=== PATIENT | female | born 1975 | race Caucasian/White ===

== ENCOUNTER → 2018-03-27 09:26 | Outpatient (CLI) | payer OTHER, SELFPAY | PROVIDERS: PCP Family Medicine; Visit Provider Physician Assistant | DX: N30.01 Acute cystitis with hematuria (principal) | CPT/HCPCS: 87077; 87086; 87186 ==

== ENCOUNTER → 2019-04-30 08:17 | Outpatient (CLI) | payer OTHER, SELFPAY ==
[2019-04-30 08:27] LABS: Bacteria Urine None Seen; RBC Urine None Seen (0-5/HPF)
[2019-04-30 09:44] LABS: Hematocrit 42.2 % (36-46); Hemoglobin 14.6 g/dL (12.0-16.0); Mean Corpuscular HGB Conc 34.6 % (30-36); Mean Corpuscular Volume 92.5 fL (80-100); Platelet Count 226 X10^3/uL (150-400); Red Blood Cell Count 4.56 X10^6/uL (4.0-5.2); Red Cell Distribution Width 12.6 % (11.6-14.8); White Blood Cell Count 6.5 X10^3/uL (4.5-11.0)
[2019-04-30 09:54] LABS: Alanine Aminotransferase 12 IU/L (9-52); Albumin 4.1 g/dL (3.5-5.0); Albumin Globulin Ratio 1.3 (1.0-2.8); Alkaline Phosphatase 58 U/L (38-126); Aspartate Aminotransferase 23 IU/L (14-36); Bilirubin Total 0.6 mg/dL (0.2-1.3); Blood Urea Nitrogen 16 mg/dL (7-17); Calcium 9.2 mg/dL (8.4-10.2); Carbon Dioxide 24 mmol/L (22-32); Chloride 105 mmol/L (98-107); Cholesterol 202 mg/dL (140-199); Estimated Glomerular Filt Rate > 60.0 mL/min (>60); Globulin 3.1 g/dL (1.7-4.1); Glucose 116 mg/dL (70-100); HDL Cholesterol 43 mg/dL (40-60); HEMOLYSIS < 15 (0-50); LDL Cholesterol Calculated 131 mg/dL (<100); Magnesium 1.9 mg/dL (1.6-2.3); Potassium 4.1 mmol/L (3.4-5.1); Sodium 138 mmol/L (137-145); Total Protein 7.2 g/dL (6.3-8.2); Triglycerides 138 mg/dL (35-150)
[2019-04-30 10:22] LABS: Appearance Urine UA CLEAR; Bilirubin Urine UA NEGATIVE (NEGATIVE); Color Urine UA YELLOW; Glucose Urine UA NEGATIVE (Negative); Ketones Urine UA NEGATIVE (NEGATIVE); Leukocyte Esterase Urine UA 1+ (NEGATIVE); Nitrite Urine UA NEGATIVE (Negative); Occult Blood Urine UA NEGATIVE (Negative); Protein Urine UA NEGATIVE (Negative); Urobilinogen Urine UA 0.2 E.U./dL (0.2)
[2019-04-30 10:49] LABS: Amorphous Sediment Urine 1+; Squamous Epithelial Cell Urine 1-5 /HPF (0-5/HPF); WBC Urine 0-1/HPF (0-5/HPF)
== END ==
PROVIDERS: Visit Provider Nurse Practitioner Family
DX: E78.2 Mixed hyperlipidemia (principal); M62.838 Other muscle spasm; Z00.00 Encounter for general adult medical examination without abnormal findings
CPT/HCPCS: 36415; 80053; 80061; 81001; 83735; 85027

== ENCOUNTER → 2019-05-03 11:51 | Outpatient (CLI) | payer OTHER, SELFPAY ==
--- NOTE | 2019-05-03 11:53 | DI.RAD.S_ITS ---
PROCEDURE: XR HAND LT MIN 3V INDICATIONS: Left hand pain TECHNIQUE: 3 views of the hand(s) acquired. COMPARISON: None. FINDINGS: Bones: No fractures or dislocations. Carpal bones are normally aligned. No suspicious bony lesions. Mild degenerative changes are noted involving the interphalangeal joints of the hand. Soft tissues: No suspicious soft tissue calcifications. IMPRESSION: 1. No acute osseous abnormality of the left hand. 2. Mild degenerative changes of the left hand. Dictated by: Naif Diamond M.D. on 05/03/2019 at 11:21 Approved by: Naif Diamond M.D. on 05/03/2019 at 11:22
== END ==
PROVIDERS: PCP Nurse Practitioner Family; Visit Provider Physician Assistant
DX: M24.842 Other specific joint derangements of left hand, not elsewhere classified (principal); M79.642 Pain in left hand
CPT/HCPCS: 73130

== ENCOUNTER → 2019-05-13 16:02 | Outpatient (CLI) | payer OTHER, SELFPAY ==
--- NOTE | 2019-05-13 16:03 | DI.MG.S_ITS ---
BILATERAL DIGITAL SCREENING MAMMOGRAM 3D/2D WITH CAD: 05/13/2019 CLINICAL: Routine screening. Baseline exam. No prior exams were available for comparison. There are scattered fibroglandular elements in both breasts. Current study was also evaluated with a Computer Aided Detection (CAD) system. No significant masses, calcifications, or other findings are seen in either breast. IMPRESSION: NEGATIVE There is no mammographic evidence of malignancy. A 1 year screening mammogram is recommended. This exam was interpreted at Station ID: [id number]. NOTE: For mammograms, a report in lay terms will be sent to the patient. Approximately 15% of breast malignancies will not be visualized mammographically. In the management of a palpable breast mass, a negative mammogram must not discourage biopsy of a clinically suspicious lesion. Electronically Signed By: Devon bernard/codey:05/13/2019 16:51:46 letter sent: Normal Exam ACR BI-RADS Category 1: Negative 3341F
== END ==
PROVIDERS: PCP Nurse Practitioner Family; Visit Provider Nurse Practitioner Family
DX: Z12.39 Encounter for other screening for malignant neoplasm of breast (principal)
CPT/HCPCS: 77063; 77067

== ENCOUNTER → 2019-10-22 07:48 | Outpatient (CLI) | payer OTHER, SELFPAY ==
[2019-10-22 08:44] LABS: Cholesterol 214 mg/dL (140-199); HDL Cholesterol 41 mg/dL (40-60); LDL Cholesterol Calculated 141 mg/dL (<100); Triglycerides 161 mg/dL (35-150)
== END ==
PROVIDERS: PCP Nurse Practitioner Family; Visit Provider Nurse Practitioner Family
DX: E78.2 Mixed hyperlipidemia (principal)
CPT/HCPCS: 36415; 80061

== ENCOUNTER → 2019-12-02 12:56 | Outpatient (CLI) | payer OTHER, SELFPAY ==
--- NOTE | 2019-12-02 12:57 | DI.US.S_ITS ---
PROCEDURE: US PELVIC COMPLETE INDICATIONS: IRREGULAR BLEEDING TECHNIQUE: Real-time scanning was performed of the pelvic organs, with image documentation. Additional endovaginal scanning was necessary due to incomplete visualization of the adnexal and endometrial structures by transabdominal scanning. COMPARISON: None. FINDINGS: Transabdominal scanning: Limited scanning through the kidneys shows no hydronephrosis. No pathologic free abdominal or pelvic fluid. Endovaginal scanning: Uterus: Uterus is enlarged in size at 8.1 x 6.5 x 5.7 cm. The endometrium measures 10 mm in combined thickness. 2 intramural fibroids, largest measuring up to 2.1 cm. Subserosal fibroid measuring up to 2.9 cm. Ovaries: Ovaries are normal bilaterally. No adnexal masses seen. IMPRESSION: Multiple uterine fibroids, largest measuring up to 2.4 cm. Dictated by: Montez LOPEZ Interpreted: Ivan Torres MD on 12/02/2019 at 16:38 Approved by: Ivan Torres M.D. on 12/02/2019 at 16:57
== END ==
PROVIDERS: PCP Nurse Practitioner Family; Referring Provider Nurse Practitioner Family; Visit Provider Nurse Practitioner Family
DX: N93.9 Abnormal uterine and vaginal bleeding, unspecified (principal); D25.1 Intramural leiomyoma of uterus; D25.2 Subserosal leiomyoma of uterus
CPT/HCPCS: 76830; 76856

== ENCOUNTER → 2020-05-11 14:52 | Outpatient (CLI) | payer OTHER, SELFPAY ==
--- NOTE | 2020-05-11 14:53 | DI.US.S_ITS ---
ULTRASOUND OF LEFT BREAST: 05/11/2020 CLINICAL: Lat breast palpable area of pain. Comparison is made to exams dated: 05/11/2020 mammogram and 05/13/2019 mammogram - [facility]. Ultrasound of the left breast was performed on the area of interest. Baldwin scale images of the real-time examination were reviewed. IMPRESSION: NEGATIVE There is no sonographic evidence of malignancy. There is no mammographic or sonographic abnormality seen in the left breast to correspond with the palpable abnormality and pain, however, clinical followup is recommended. Return to annual mammogram screening schedule is recommended. This exam was interpreted at Station ID: [id number]. Electronically Signed By: Brittney Macias M.D. lk/:05/11/2020 15:56:03 letter sent: Clinical Evaluation Ultrasound BI-RADS: 1 Negative
--- NOTE | 2020-05-11 14:53 | DI.MG.S_ITS ---
BILATERAL DIGITAL DIAGNOSTIC MAMMOGRAM 3D/2D: 05/11/2020 CLINICAL: Let breast and tenderness. Comparison is made [facility]. There are scattered fibroglandular elements in both breasts. No significant masses, calcifications, or other findings are seen in either breast. IMPRESSION: INCOMPLETE: NEEDS ADDITIONAL IMAGING EVALUATION There is no mammographic abnormality seen in the left breast to correspond with the palpable abnormality and pain, however, targeted ultrasound of the left breast is recommended and will be performed immediately following this exam. This exam was interpreted at Station ID: [id number]. NOTE: For mammograms, a report in lay terms will be sent to the patient. Approximately 15% of breast malignancies will not be visualized mammographically. In the management of a palpable breast mass, a negative mammogram must not discourage biopsy of a clinically suspicious lesion. Electronically Signed By: Brittney Macias M.D. lk/:05/11/2020 15:38:39 ACR BI-RADS Category 0: Incomplete [id number]
== END ==
PROVIDERS: PCP Nurse Practitioner Family; Referring Provider Nurse Practitioner Family; Visit Provider Nurse Practitioner Family
DX: R92.2 Inconclusive mammogram (principal); N63.20 Unspecified lump in the left breast, unspecified quadrant; N64.4 Mastodynia
CPT/HCPCS: 76642; 77066; G0279

== ENCOUNTER → 2020-06-20 08:22 | Outpatient (CLI) | payer OTHER, SELFPAY ==
[2020-06-20 08:57] LABS: Hematocrit 40.3 % (36-46); Hemoglobin 14.3 g/dL (12.0-16.0); Mean Corpuscular HGB Conc 35.5 % (30-36); Mean Corpuscular Hemoglobin 32.8 PG (26-34); Mean Corpuscular Volume 92.4 fL (80-100); Platelet Count 223 X10^3/uL (150-400); Red Blood Cell Count 4.36 X10^6/uL (4.0-5.2); Red Cell Distribution Width 12.5 % (11.6-14.8); White Blood Cell Count 6.4 X10^3/uL (4.5-11.0)
[2020-06-20 09:24] LABS: Alanine Aminotransferase 18 IU/L (<35); Albumin 4.2 g/dL (3.5-5.0); Albumin Globulin Ratio 1.3 (1.0-2.8); Alkaline Phosphatase 63 U/L (38-126); Aspartate Aminotransferase 28 IU/L (14-36); BUN Creatinine Ratio 17.5 (6-22); Bilirubin Total 0.5 mg/dL (0.2-1.3); Blood Urea Nitrogen 14 mg/dL (7-17); Calcium 9.1 mg/dL (8.4-10.2); Carbon Dioxide 29 mmol/L (22-32); Chloride 104 mmol/L (98-107); Cholesterol 204 mg/dL (140-199); Estimated Glomerular Filt Rate > 60.0 mL/min (>60); Globulin 3.3 g/dL (1.7-4.1); Glucose 129 mg/dL (70-100); HDL Cholesterol 44 mg/dL (40-60); HEMOLYSIS < 15 (0-50); LDL Cholesterol Calculated 135 mg/dL (<100); Sodium 138 mmol/L (137-145); Total Protein 7.5 g/dL (6.3-8.2); Triglycerides 123 mg/dL (35-150)
== END ==
PROVIDERS: PCP Nurse Practitioner Family; Referring Provider Nurse Practitioner Family; Visit Provider Nurse Practitioner Family
DX: Z00.00 Encounter for general adult medical examination without abnormal findings (principal); E78.2 Mixed hyperlipidemia
CPT/HCPCS: 36415; 80053; 80061; 85027

== ENCOUNTER → 2020-06-22 09:21 | Outpatient (CLI) | payer OTHER, SELFPAY ==
[2020-06-22 12:58] LABS: Hemoglobin A1C% w Est Avg Glu 5.6 % (4.0-6.0)
== END ==
PROVIDERS: PCP Nurse Practitioner Family; Visit Provider Nurse Practitioner Family
DX: R73.09 Other abnormal glucose (principal)
CPT/HCPCS: 83036

== ENCOUNTER → 2021-05-10 16:26 | Outpatient (CLI) | payer OTHER, SELFPAY ==
[2021-05-10 17:08] LABS: COVID19 -Nasal RAPID Negative (Negative)
== END ==
PROVIDERS: PCP Nurse Practitioner Family; Visit Provider Specialist
DX: Z20.822 Contact with and (suspected) exposure to COVID-19 (principal); Z01.812 Encounter for preprocedural laboratory examination
CPT/HCPCS: 87635

== ENCOUNTER 2021-05-11 10:57 | Day surgery (SDC) | payer OTHER, SELFPAY ==
[2021-05-09 10:46] VITALS: BMI 31.9
[2021-05-11] VITALS (7 sets, daily range): BP systolic 109–124; BP diastolic 67–79; PULSE 66–90; RESP 8–16; TEMP 36.1–37.5; O2SAT 96–100; BMI 31.9
--- NOTE | 2021-05-11 | PATH_ITS ---
[facility] Accession Number: [id number] . 01 Material submitted: . endometrium - ENDOMETRIAL CURETTINGS . 02 Diagnosis: Endometrial Curettings: Portions of secretory endometrium; negative for glandular hyperplasia, cytologic atypia, or malignancy. Some endometrial fragments demonstrate prominent vessels, suggestive of polyp, if clinical and imaging studies are concordant. MRV 05/15/2021 1022 Local . 02 Electronically signed: . Estrellita Nation MD, Pathologist NPI- [id number] . 01 Gross description: . ENDOMETRIAL CURETTINGS: Received in formalin are multiple fragment(s) of dobbins, soft tissue measuring 3.0 x 2.3 x 0.5 cm in aggregate submitted entirely in 1 cassette(s) /[place]ENCE 05/12/2021 0725 Local . 02 Pathologist provided ICD-10: N92.1, N84.0 . 02 CPT . 060520 Performed at: 01 [facility] [address], [place], [place] [id number] MD Deandre Lanier MD Phone: [phone] Performed at: 02 [facility] [address] [place], [place] [id number] MD Yaima Diego MD Phone: [phone]
--- NOTE | 2021-05-11 07:04 | P.HP_ITS ---
History of Present Illness History of Present Illness Date Patient Seen: 05/11/21 Time Patient Seen: 12:47 Chief complaint: [facility] [place] Narrative: Patient is a 46-year-old 3 para 2 who presents for a D&C hysteroscopy with NovaSure endometrial ablation due to menometrorrhagia. Patient History Medical History (Updated 04/24/21 @ 09:36 by Jennie Chakraborty MD) Abnormal vaginal bleeding (03/2019) Candidal intertrigo Elevated fasting blood sugar (06/22/20) Skin lesion Tendinitis Uterine fibroid (03/2020) Surgical History (Updated 01/21/18 @ 05:51 by Conversion Provider) History of tonsillectomy Status post delivery Status post myringotomy with insertion of tube Family & Social History Family History (Updated 04/25/17 @ 00:00 by FELICITY Prince) Grandfather Hypertension High cholesterol Mother Age: 76 High cholesterol Alzheimer's disease Mental health problem Grand mal convulsion Grandfather Cancer Hypertension High cholesterol Grandmother Diabetes mellitus Social History: household members spouse,children Tobacco & Substance use: Smoking Status Never smoker alcohol intake current alcohol intake frequency 0-2 drinks per day Substance Use Type does not use Meds Home Medications and Allergies Home Medications Medication Instructions Recorded Confirmed Type multivitamin 1 tab PO DAILY 12/01/19 05/11/21 History ibuprofen 200 mg tablet 800 mg PO DAILY PRN tab 06/22/20 05/11/21 History medroxyprogesterone 10 mg tablet 10 mg PO DAILY #100 tab 05/05/21 05/11/21 Rx (Provera) Allergies Allergy/AdvReac Type Severity Reaction Status Date / Time SULFA Allergy Mild RASH Uncoded 05/11/21 11:26 Exam Narrative Exam Narrative: HEENT: No thyromegaly, no anterior cervical or supraclavicular lymphadenopathy. Lungs:Clear to auscultation bilaterally, no wheezes. Cardiovascular: Regular rate and rhythm, no murmurs, rubs, or gallops. Abdomen: Well-healed Pfannenstiel scars. No hepatosplenomegaly. No masses palpable. External genitalia: Normal Vagina: Normal Cervix: Normal Bimanual exam: [8 Week size anteverted uterus. Mobile.] No adnexal masses or tenderness Extremities: No edema Assessment & Plan Assessment & Plan narrative: Assessment: 46-year-old 3 para 2 with menometrorrhagia Plan: D&C hysteroscopy with NovaSure endometrial ablation The risks, benefits, and alternatives to the procedure were explained to the patient. The risks including bleeding, infection, and uterine perforation. She understands these risks and agrees to proceed. A full par Q was held and consent form was signed. COVID-19 COVID-19 status: Negative Result date/Date tested (Pos, Neg/Pending): 05/10/21 Time Spent With Patient Time with patient: 15-24 minutes
--- NOTE | 2021-05-11 07:06 | PM.PREOP ---
Pre-operative Note COVID-19 COVID-19 status: Negative Result date/Date tested (Pos, Neg/Pending): 05/10/21 Interval Note History & Physical reviewed/Exam performed by Physician: Yes Changes to H&P: No H&P completed within 30 days and has changed as indicated here:: 05/11/21
[2021-05-11] MEDS: LACTATED RINGERS 1,000 ML 100 ML IV (11:36)
--- NOTE | 2021-05-11 13:26 | PM.GYNOP.1 ---
Operative Date/Time/Diagnoses Date of procedure: 05/11/21 Time of procedure: 13:26 Pre-op diagnosis: Menometrorrhagia Post-op diagnosis: same Procedure & Clinicians Procedure: Procedures Operation Date: 05/11/21 12:45 Actual Procedure Side Surgeon p Hysteroscopy D&C w/ Novasure Ablation Jennie Chakraborty MD Indications: Menometrorrhagia Surgeon: Jennie Chakraborty Anesthesia Type: General (LMA) Operative Notes Findings: Eight week size anteverted uterus Both fallopian tube ostia observed Thickened endometrial lining Closure Type: not applicable Specimen(s): endometrial curettings Estimated blood loss (mL): 5 Blood products transfused: none Procedure in detail: After informed consent was obtained, the patient was taken to the operating room where she was placed in the dorsal supine position. After adequate LMA general anesthesia was achieved, she was placed in the dorsal lithotomy position, and prepped and draped in the usual sterile fashion. A time-out was performed. A bivalve speculum was placed into the vagina and the anterior lip of the cervix was grasped with a single-tooth tenaculum. The cervical os was sequentially dilated until the hysteroscope could pass easily into the endometrial cavity. Initial inspection with the hysteroscope revealed both fallopian tube ostia, and a thickened endometrial lining. The hysteroscope was removed. Gentle sharp curettage was performed yielding a large amount of endometrial curettings. The uterus was measured from the internal os to the fundus of the uterus and measured 5 cm. The NovaSure catheter was opened and the with of the uterus was 4.2 cm. This indicated a power of 116 w. the cavity assessment was performed and passed. The cervix was capped. The cycle was initiated and lasted 93 seconds. The NovaSure catheter was closed, the cervix was uncapped, and the catheter was removed without difficulty. Single-tooth tenaculum was removed from the anterior lip of the cervix. The bivalve speculum was removed from the vagina. Sponge, lap, and instrument counts were correct x2. The patient tolerated the procedure well, and was taken to PACU in stable condition. Complications: none Post-operative Condition: stable Disposition: PACU Plan for aftercare: Home after recovery
--- NOTE | 2021-05-11 13:39 | SUR.OPER ---
Lithotomy on padded OR bed, head on pillow, arms secured on padded arm boards at <90 degrees abduction. Legs secured in padded yellow fins stirrups.
--- NOTE | 2021-05-11 13:42 | SUR.PHASEI ---
Received to PACU after general anesthesia. Oral airway in place. No further airway support required. Report from YESI Solis and Dr Kamara.
== END 2021-05-11 15:00 | disposition home or self-care (01) ==
PROVIDERS: PCP Nurse Practitioner Family; Referring Provider Obstetrics & Gynecology; Visit Provider Obstetrics & Gynecology
PROC: 0U5B8ZZ Destruction of Endometrium, Via Natural or Artificial Opening Endoscopic (ICD-10-PCS; CPT 58563; principal; 2021-05-11 12:45)
DX: N92.1 Excessive and frequent menstruation with irregular cycle (principal); N84.0 Polyp of corpus uteri
CPT/HCPCS: 58558; J1885; J2250; J2405; J2704; J3010

== ENCOUNTER → 2021-05-26 10:58 | Outpatient (CLI) | payer OTHER, SELFPAY ==
--- NOTE | 2021-05-26 | DI.MG.S_ITS ---
BILATERAL DIGITAL SCREENING MAMMOGRAM 3D/2D WITH CAD: 05/26/2021 CLINICAL: Routine screening. Family history of breast cancer. Comparison is made to exams dated: 05/11/2020 ultrasound, 05/11/2020 mammogram, and 05/13/2019 mammogram - [facility]. There are scattered fibroglandular elements in both breasts. Current study was also evaluated with a Computer Aided Detection (CAD) system. No significant masses, calcifications, or other findings are seen in either breast. There has been no significant interval change. IMPRESSION: NEGATIVE There is no mammographic evidence of malignancy. A 1 year screening mammogram is recommended. This exam was interpreted at Station ID: [id number]. NOTE: For mammograms, a report in lay terms will be sent to the patient. Approximately 15% of breast malignancies will not be visualized mammographically. In the management of a palpable breast mass, a negative mammogram must not discourage biopsy of a clinically suspicious lesion. Electronically Signed By: Billie santana/codey:05/26/2021 14:17:38 letter sent: Normal Exam ACR BI-RADS Category 1: Negative 3341F
== END ==
PROVIDERS: PCP Nurse Practitioner Family; Referring Provider Nurse Practitioner Family; Visit Provider Nurse Practitioner Family
DX: Z12.31 Encounter for screening mammogram for malignant neoplasm of breast (principal); Z80.3 Family history of malignant neoplasm of breast
CPT/HCPCS: 77063; 77067

== ENCOUNTER → 2021-09-04 14:32 | Outpatient (CLI) | payer OTHER, SELFPAY ==
[2021-09-04 16:30] LABS: COVID19 -Nasal RAPID Negative (Negative)
== END ==
PROVIDERS: PCP Nurse Practitioner Family; Visit Provider Obstetrics & Gynecology
DX: Z01.812 Encounter for preprocedural laboratory examination (principal); Z20.822 Contact with and (suspected) exposure to COVID-19
CPT/HCPCS: 87635

== ENCOUNTER 2021-09-05 08:37 | Observation (INO) | payer OTHER, SELFPAY ==
[2021-09-04 13:49] VITALS: BMI 32.7
[2021-09-05] VITALS (28 sets, daily range): BP systolic 83–115; BP diastolic 41–82; PULSE 55–80; RESP 10–18; TEMP 36.6–38.2; O2SAT 92–99; BMI 32.7
--- NOTE | 2021-09-05 | PATH_ITS ---
[facility] Accession Number: [id number] . 01 Material submitted: . uterus - FIBEROID UTERUS AND BILATERAL TUBES . 01 Clinical history: . PELVIC *OPB* . 02 Diagnosis: A. Uterus and Bilateral Fallopian Tubes, Supracervical Hysterectomy and bilateral salpingectomy: Myometrium with adenomyosis and multiple leiomyomatas (up to 4 cm). Weakly proliferative/early secretory phase endometrium with extensive hyalinization/infarct-type changes and evidence of prior hemorrhage. Bilateral fallopian tubes with congestion, edema and hydrosalpinx. No evidence of dysplasia, endometrioid intraepithelial neoplasia, or malignancy. [facility] 09/11/2021 0452 Local . 02 Electronically signed: . Catherine Gonzales MD, Pathologist NPI- [id number] . 01 Gross description: . The specimen is received in formalin labeled fibroid uterus, bilateral tubes and consists of a 127 gram supracervically resected uterus with one attached fallopian tube and one detached fallopian tube. The specimen measures 11.0 cm from superior fundus to cervix x 6.0 cm from cornu to cornu x 4.5 cm from anterior to posterior. The serosa is dobbins-pink and smooth with focal areas of hemorrhage and disruption along with fibrinous adhesions. The specimen is bivalved to reveal a distorted endometrial cavity measuring 4.5 x 2.0 cm with a dobbins-pink granular endometrium measuring 0.2 cm in thickness. There is a 4.0 x 3.0 x 1.2 cm aggregate of loosely adherent dobbins hemorrhagic soft tissue within the endometrial cavity, which detached during sectioning. The myometrium is dobbins-pink and trabeculated measuring 2.0 cm in thickness. There are multiple dobbins-white whorled leiomyomata ranging from 0.3 to 4.0 cm with no areas of hemorrhage, necrosis or cystic degeneration. The attached fallopian tube measures 7.5 cm in length x 1.0 cm in diameter and the detached fallopian tube measures 6.8 cm in length x 1.0 cm in diameter. The serosa is dobbins-pink to pink-purple and smooth with focal fibrinous adhesions. Sectioning reveals a dobbins-pink to red-brown mucosa and a stellate lumen measuring 0.5 cm in diameter. [employer] Specialist sections are submitted. . A1-A2 - Lower uterine segment. A3-A4 - Loosely adherent endometrial cavity soft tissue, entirely submitted. A5-A9 - Vector Control Specialist uterus and leiomyomata. A10-A11 - Attached fallopian tube, central cross sections and bisected fimbria. A12 - Detached fallopian tube, bisected fimbria, and central cross sections. ([id number]) /[facility] 09/06/2021 1729 Local . 02 Pathologist provided ICD-10: D25.9, N92.0 . 02 CPT . 897108 Performed at: 01 [facility] [address] [address], [place], [place] [id number] MD Deandre Lanier MD Phone: [phone] Performed at: 02 [facility] [address] [place], [place] [id number] MD Yaima Diego MD Phone: [phone]
[2021-09-05] MEDS: LACTATED RINGERS 1,000 ML 100 ML IV ×4 (09:15→16:47)
--- NOTE | 2021-09-05 09:52 | PM.PREOP ---
Pre-operative Note COVID-19 COVID-19 status: Negative Result date/Date tested (Pos, Neg/Pending): 09/04/21 Interval Note History & Physical reviewed/Exam performed by Physician: Yes Changes to H&P: No H&P completed within 30 days and has changed as indicated here:: 09/04/21
[2021-09-05] MEDS: CEFAZOLIN 2 GM/20 ML SYRINGE IV (10:30)
--- NOTE | 2021-09-05 11:01 | SUR.OPER ---
Lithotomy on padded OR bed. Norton Pad Positioner under torso. Head on pillow, arms padded and tucked at sides. Legs secured in padded yellow fins stirrups.
[2021-09-05] MEDS: EPINEPHrine 1 MG/ML 0.15 MG INJ (11:07)
[2021-09-05] MEDS: BUPIVACAINE 0.5% (PF) VIAL 30 ML INJ (11:08)
[2021-09-05] MEDS: ACETAMINOPHEN IV 1,000 MG/100 ML VIAL 400 MG IV (11:08)
[2021-09-05] MEDS: TRIAMCINOLONE 40 MG/ML VIAL 30 MG IM (12:12)
--- NOTE | 2021-09-05 13:06 | PM.GYNOP.1 ---
Operative Date/Time/Diagnoses Date of procedure: 09/05/21 Time of procedure: 13:06 Pre-op diagnosis: Menorrhagia Failed endometrial ablation Post-op diagnosis: same Procedure & Clinicians Procedure: Procedures Operation Date: 09/05/21 09:45 Actual Procedure Side Surgeon p Laparoscopic Supracervical Hysterectomy w/ bilateral salpingectomies-attempted, converted to open Bilateral Jennie Chakraborty MD Indications: Menorrhagia Failed endometrial ablation Surgeon: Jennie Chakraborty Track Moving Machine Operator: Stephanie Chavez Anesthesia Type: General and Local Operative Notes Findings: Omental to anterior abdominal wall adhesion Omental to left cornua of the uterus adhesions Significant bladder to lower uterine segment adhesions Closure Type: primary Specimen(s): left tube, right tube and uterus Applied: catheter (To continuous drainage) Estimated blood loss (mL): 250 Blood products transfused: none Procedure in detail: The patient was taken to the operating room where she was placed in the dorsal supine position. After adequate general endotracheal anesthesia was achieved, she was placed in the dorsal lithotomy position, prepped and draped the usual sterile fashion. A time-out was performed. A bivalve speculum was placed into the vagina and the anterior lip of the cervix was grasped with a single-tooth tenaculum. The cervical os was sequentially dilated until the Zumi uterine manipulator could pass easily into the endometrial cavity. The single-tooth tenaculum was removed from the anterior lip of the cervix. The bivalve speculum was removed from the vagina. Attention was then turned to the abdomen where 6 cc of 0.5% Marcaine with epinephrine were injected in the umbilical fold. A 5 mm incision was made. The Veress needle was placed into the peritoneal cavity, and its placement confirmed by aspiration and drop test. The abdominal cavity was insufflated with 4.2 L of CO2. The Veress needle was removed, and a 5 mm trocar was placed without difficulty. Initial inspection of the abdomen and pelvis revealed significant adhesions between omentum and the anterior abdominal wall. A second 5 mm incision was made 4 cm lateral to the midline on the right side after 6 cc of 0.5% Marcaine with epinephrine were injected. A second 5 mm trocar was placed under direct visualization. Using both the Endo Nessa with cautery and the PlasmaKinetic, the omentum was carefully taken down off of the anterior abdominal wall with cautery and cut. Care was taken make sure that there was no bowel involved with the omentum. Hemostasis was achieved. Once the pelvis could be visualized. There was a piece of omentum stuck to the uterus. A third incision was made lateral to the umbilicus on the left side after 6 cc of 0.5% Marcaine with epinephrine were injected. A third 5 mm trocar was placed under direct visualization, taking care to avoid the omentum. The piece of omentum was placed on traction with an atraumatic grasper. Using the Endo Nessa, the piece of omentum was dissected off of the uterus using cautery and cut. Hemostasis was achieved. The ovaries were found to be normal. The tubes were found to be normal. She had previously had her gallbladder removed. There were significant adhesions between the bladder and uterus along the previous area. The Endo Nessa were used to take down the filmy adhesions. It was very difficult to see the plane between the uterus and bladder. The mesosalpinx on the right side was cauterized and cut all the way down to the cornua of the uterus. This was repeated on the patient's left side. The utero-ovarian ligament and round ligament were cauterized and cut on the right side. The broad ligament was cauterized and cut. A small bladder flap on the right side was created using the PlasmaKinetic. The uterine arteries on the right side were cauterized for hemostasis. Turning to the left side, was very difficult to visualized the bladder plane. A decision was made to proceed with an open procedure. The instruments were removed from the abdomen. The CO2 was allowed to escape. The laparoscopy incisions were closed with 4-0 Monocryl in a subcuticular fashion. A Pfannenstiel incision was made through the previous section incision. This was carried through to the underlying layer of fascia. The fascia was nicked in the midline and the incision extended bilaterally with the Vasquez scissors. Superior aspect of the fascial incision was grasped with the Allen clamps, elevated, and the underlying rectus muscles dissected off sharply and bluntly. Attention was then turned to the inferior aspect of this incision which in a similar fashion was grasped with the Allen is, elevated, and the fascia was taken down off of the muscle using sharp and blunt dissection. The rectus muscles were in the midline. The peritoneum was identified and grasped between 2 hemostats. Care was taken to avoid any bowel between the hemostats. The peritoneum was entered sharply with the Metzenbaum scissors. This incision was extended superiorly and inferiorly with good visualization of the bladder. The O'Omar O'Owen retractor was placed into the incision, the bowel was packed away with moist lap sponges. A bladder blade was inserted. On the left side the utero-ovarian ligament was cauterized and cut with the PlasmaKinetic. The round ligament was cauterized and cut. Hemostasis was achieved. The broad ligament was cauterized and cut. At the level of the uterine arteries the bladder was adhesed to the uterus. This was taken down sharply using the Metzenbaum scissors. Finally a plane was visualized between the bladder and the lower uterine segment. This was grasped with a pickup and the bladder taken down off the lower uterine segment and cervix sharply using the Metzenbaum scissors. A moistened sponge stick was then used to push the bladder down off of the cervix. The uterine arteries on the left side were clamped, transected, and suture ligated with 0 Vicryl. Using a 10. Blade, the uterus was amputated from the cervix approximately 2 cm above the uterosacral ligaments. There was a fibroid visualized in the very lower uterine segment and top of the cervix. This was removed with the specimen. There was also a pedunculated fibroid at the fundus of the uterus that measured about 5 cm. All of this was handed off for specimen. The cervix was closed with a series of simple interrupted sutures using 0 Vicryl. There was some bleeding noted at the left edge. A suture with 0 Vicryl was placed in a [id number] suture for hemostasis. The pelvis and abdomen were copiously irrigated with warm normal saline. There was no bleeding noted. The moist lap sponges were removed from the abdomen. The O'Omar O'Owen retractor system was removed from the abdomen and pelvis. The pelvis was once again visualized and was found to be hemostatic. The omentum that had previously been taken down was visualized and was hemostatic. The peritoneum was closed with 2-0 Vicryl in a running fashion. The fascia was reapproximated using 0 Vicryl in a running fashion. The subcutaneous layer was copiously irrigated with warm normal saline. Five simple interrupted sutures with 3-0 Vicryl were placed to reapproximate the subcutaneous layer. The skin was closed with 4-0 Monocryl in a subcuticular fashion. Steri-Strips and an Aquacel dressing were placed over the lower incision. Steri-Strips and Allevyn dressings were placed over the laparoscopy incisions. The Zumi uterine manipulator was removed from the uterus prior to amputation of the uterus from the cervix abdominally. Sponge, lap, and instrument counts were correct x2. The patient tolerated the procedure well, and was taken to PACU in stable condition. Complications: none Post-operative Condition: stable Disposition: PACU Plan for aftercare: To acute care after recovery
[2021-09-05] MEDS: fentaNYL 100 MCG/2 ML INJ IV (13:45)
--- NOTE | 2021-09-05 14:02 | SUR.PHASEI ---
Dr Morin to bedside to check on patient. Reviewed patient VS including BP 84/50 (MAP 66) abd 83/51 with HR 58-62. Pt with good color. resting comfortably with eyes closed. LR Bag #3 infusing wide open. See new order for Dilaudid IV. Continue to monitor. No other orders at this time.
[2021-09-05] MEDS: LACTATED RINGERS 1,000 ML 999 ML IV (14:05)
--- NOTE | 2021-09-05 14:09 | SUR.PHASEI ---
Dr Chakraborty notified in office via nurse that patient with cloudy, yellow urine, UA taken from ross cath while emptying for the first time post insertion. See new order.
[2021-09-05] MEDS: HYDROMORPHONE 2 MG INJ 0.25 MG IV ×3 (14:29→14:43)
[2021-09-05 14:42] LABS: Appearance Urine UA CLOUDY; Bilirubin Urine UA NEGATIVE (NEGATIVE); Color Urine UA YELLOW; Glucose Urine UA NEGATIVE (Negative); Ketones Urine UA NEGATIVE (NEGATIVE); Leukocyte Esterase Urine UA NEGATIVE (NEGATIVE); Nitrite Urine UA NEGATIVE (Negative); Occult Blood Urine UA 3+ (Negative); Protein Urine UA NEGATIVE (Negative); Urobilinogen Urine UA 0.2 E.U./dL (0.2)
[2021-09-05] MEDS: OXYCODONE IR 5 MG TABLET PO ×3 (14:42→17:24)
[2021-09-05 14:44] LABS: pH Urine UA 5.5 (4.5-8.0)
[2021-09-05 14:51] LABS: Amorphous Sediment Urine 3+; Bacteria Urine None Seen; Culture Indicated Urine Cult Not Indicated; Mucus Urine 1+ (Negative); RBC Urine 1-5/HPF (0-5/HPF); Squamous Epithelial Cell Urine 1-5 /HPF (0-5/HPF); WBC Urine 0-1/HPF (0-5/HPF)
--- NOTE | 2021-09-05 15:55 | SUR.PHASEI ---
Pt transferred to room 211 in stretcher by this RN. SBAR report to Lizabeth Carvalho with eval of dressings and ewa pad at bedside. Pt alert, oriented, pain /10. Transferred to bed, call light in reach, belongings with patient. at bedside.
[2021-09-05] MEDS: KETOROLAC 30 MG/ML VIAL IV ×2 (16:47→23:02)
[2021-09-05] MEDS: OXYCODONE IR 10 MG TABLET PO (18:14)
[2021-09-05] MEDS: ACETAMINOPHEN 325 MG TABLET 650 MG PO (18:14)
--- NOTE | 2021-09-05 19:10 | PC.NURSE ---
A&Ox4. VSS. Pain 7/10 in lower abdomen. Given PRN oxycodone 5mg which didn't not help. Dr. Chakraborty increased dose to 10 mg so patient was given another 5mg dose. LR going at 100 left hand. Ice applied to abdomen. Dressings CDI. Beulah pad with scant blood. Byrd draining yellow urine. Ate a few crackers and drinking broth. at bedside. Call light within reach, bed low.
[2021-09-05] MEDS: MORPHINE 4 MG/ML INJ IV (20:50)
[2021-09-05] MEDS: DOCUSATE 100 MG CAPSULE 200 MG PO (20:50)
--- NOTE | 2021-09-05 21:45 | PC.NURSE ---
Addendum entered by Joy Henderson R.N. 09/06/21 06:51: Catheter d'cd at 0645; tolerated well. Instructed in sx/prevention of UTI. Pain well controlled during the night following the 1x dose of Morphine. Dr Chakraborty in earlier this morning to see patient. Original Note: Patient is alert and oriented. Breath sounds CTA with RA sat of 97%. HRR. Did complain of lightheadedness/dizziness when out of bed. Denied nausea. BT hypoactive and denies passing flatus as yet. Abdomen is soft and tender to touch. Allevyn dressings to lap sites CDI. Aquacel dressing to lower abdomen is CDI. Complained of 7/10 lower abdominal pain unrelieved with oxycodone, tylenol or toradol so Dr. Briseno contacted and order received for IV Morphine and patient medicated as ordered and now pain is coming down and is 5/10. Has warm blanket applied to abdomen for comfort. Peripad changed and had moderate amount of brown/red drainage. Indwelling catheter is patent and urine is clear, yellow. Is able to move self in bed. Gotten out of bed with 2 assists (spouse and RN) and ambulated in room and back to bed. Wearing bilateral calf SCD's. Fall risk score is moderate but spouse in room so alarm is not activated.
[2021-09-06] VITALS: BP 94/49; PULSE 74; RESP 16; TEMP 37.3; O2SAT 95
[2021-09-06] MEDS: ACETAMINOPHEN 325 MG TABLET 650 MG PO ×3 (00:10→11:31)
[2021-09-06] MEDS: OXYCODONE IR 10 MG TABLET PO ×3 (02:49→13:53)
[2021-09-06] MEDS: LACTATED RINGERS 1,000 ML 100 ML IV (02:55)
[2021-09-06 03:14] VITALS: BP 98/55; PULSE 57; RESP 18; TEMP 36.6; O2SAT 98
[2021-09-06] MEDS: KETOROLAC 30 MG/ML VIAL IV ×2 (04:38→10:00)
[2021-09-06 06:58] LABS: Add Manual Diff / Slide Review NO; Basophils Absolute Auto 100 /uL (0-100); Basophils Percent Auto 0.5 % (0-2); Eosinophils Absolute Auto 0 /uL (0-450); Eosinophils Percent Auto 0.1 % (2-4); Hematocrit 29.1 % (36-46); Hemoglobin 9.7 g/dL (12.0-16.0); Lymphocytes Absolute Auto 1000 /uL (1100-4500); Lymphocytes Percent Auto 10.2 % (25-40); Mean Corpuscular HGB Conc 33.3 % (30-36); Mean Corpuscular Hemoglobin 27.3 PG (26-34); Mean Corpuscular Volume 81.8 fL (80-100); Monocytes Absolute Auto 700 /uL (0-900); Monocytes Percent Auto 6.9 % (3-14); Neutrophils Absolute Auto 7800 /uL (1500-7000); Neutrophils Percent Auto 82.3 % (50-75); Platelet Count 222 X10^3/uL (150-400); Red Blood Cell Count 3.56 X10^6/uL (4.0-5.2); Red Cell Distribution Width 15.6 % (11.6-14.8); White Blood Cell Count 9.4 X10^3/uL (4.5-11.0)
--- NOTE | 2021-09-06 07:55 | P.PN_ITS ---
Subjective Subjective Date Patient Seen: 09/06/21 Time Patient Seen: 04:40 Interval history: Patient is a 46-year-old 3 para 2 postop day # 1 status post a l aparoscopy that was converted to abdominal supracervical hysterectomy, bilateral salpingectomy, and extensive lysis of adhesions. She had some pain control issues last evening which were finally resolved with some IV morphine. She is comfortable this morning. No nausea or vomiting. She did tolerate some broth last evening. She ambulated in the room. The Byrd catheter is still in place. Exam Vital Signs (past 8 hours): - 09/06/21 00:00 09/06/21 03:14 Temperature 99.2 F 97.9 F Pulse Rate 74 57 L Respiratory Rate 16 18 Blood Pressure 94/49 L 98/55 L Pulse Oximetry 95 98 Oxygen Delivery Method Room Air Oxygen Flow Rate 0 Narrative Exam Narrative: Generally: The patient is lying in bed, no acute distress Lungs: Clear to auscultation bilaterally Cardiovascular: Regular rate and rhythm Abdomen: Soft and flat. Bowel sounds in all 4 quadrants. Extremities: SCDs in place. Objective Labs Result Diagrams: 09/06/21 05:40 Labs: Laboratory Results - last 24 hr 09/05/21 09/06/21 14:07 05:40 WBC 9.4 RBC 3.56 L Hgb 9.7 L Hct 29.1 L MCV 81.8 MCH 27.3 MCHC 33.3 RDW 15.6 H Plt Count 222 Neut % (Auto) 82.3 H Lymph % (Auto) 10.2 L Riley % (Auto) 6.9 Eos % (Auto) 0.1 L Baso % (Auto) 0.5 Neut # (Auto) 7800 H Lymph # (Auto) 1000 L Riley # (Auto) 700 Eos # (Auto) 0 Baso # (Auto) 100 Urine Color Yellow Urine Appearance Cloudy Urine pH 5.5 Ur Specific Epps 1.020 Urine Protein Negative Urine Glucose (UA) Negative Urine Ketones Negative Urine Occult Blood 3+ H Urine Nitrate Negative Urine Bilirubin Negative Urine Urobilinogen 0.2 Ur Leukocyte Esterase Negative Urine RBC 1-5/hpf Urine WBC 0-1/hpf Ur Squamous Epith Cells 1-5 /hpf Amorphous Sediment 3+ Urine Bacteria None seen Urine Mucus 1+ H Ur Culture Indicated? Cult not indicated [facility] Medical History (Updated 06/11/21 @ 16:51 by Jennie Chakraborty MD) Candidal intertrigo Elevated fasting blood sugar (06/22/20) Skin lesion Tendinitis Surgical History (Updated 09/04/21 @ 13:49 by Nadine Lima RN) History of hysteroscopy (05/11/21) History of tonsillectomy Status post delivery Status post myringotomy with insertion of tube Family History (Updated 04/25/17 @ 00:00 by FELICITY Prince) Grandfather Hypertension High cholesterol Mother Age: 76 High cholesterol Alzheimer's disease Mental health problem Grand mal convulsion Grandfather Cancer Hypertension High cholesterol Grandmother Diabetes mellitus Social History household members: spouse and children Smoking Status: Never smoker second hand exposure: No alcohol intake: current substance use type: does not use Assessment & Plan Post-op Postoperative Procedures: Procedures Operation Date: 09/05/21 09:45 Actual Procedure Side Surgeon p Laparoscopic Supracervical Hysterectomy w/ bilateral salpingectomies- attempted, converted to open Bilateral Jennie Chakraborty MD Postoperative day: 1 Postoperative status: doing well Postoperative status narrative: Assessment: Postop day # 1 status post laparoscopy converted to laparotomy with supracervical hysterectomy, bilateral salpingectomy, and extensive lysis of adhesions Patient doing well Postoperative plan: ambulate, advance diet and voiding trials Postoperative plan narrative: Plan: Remove Byrd catheter this morning Advanced diet Ambulate Will re-evaluate at lunchtime for possible discharge later today
[2021-09-06] MEDS: DOCUSATE 100 MG CAPSULE 200 MG PO (07:57)
[2021-09-06 10:09] VITALS: BP 112/54; PULSE 56; PULSE 62; RESP 19; TEMP 37.1; O2SAT 98
--- NOTE | 2021-09-06 10:57 | CM.DANOTE ---
Addendum entered by CARLOS Fox 09/06/21 14:10: ADD: Per MD, pt was able to void independently and medically stable to d/c home today with no identified barriers to discharge. BF Original Note: Patient is a 46 yo female who was admitted for planned hysterectomy/ablasion. Pt has REG PPO for insurance and her PCP is Laverne Wooten. EMR was reviewed. Per OBGYN, pt tolerated procedure well and had some pain management issues overnight but better controlled now and will d/c her ross, advance pt's diet, towards determining if she is stable to d/c home today vs tomorrow. SW met bedside with pt and spouse and explained role and pt confirms that they live at home in [place] with two older children and pt is active and independent at baseline and drives and denies any hx of HH or SNF. Pt's spouse has taken FMLA and can be home for / assist for a week and then their young adult son is home from college for the winter break and available to assist if needed as well. Pt and spouse do not anticipate any needs at d/c and are hopeful for d/c home later today if stable. Pt was able to tolerate breakfast and still waiting to void independently. Plan: SW to follow for possible d/c home today vs tomorrow via spouse POV. No anticipated d/c needs at this time, please refer if indicated. CARLOS Fox Discharge Planning/Care Management CM Discharge Assessment Start: 09/06/21 10:56 Freq: Status: Active Protocol: Document 09/06/21 10:56 (Rec: 09/06/21 10:57 [id number]) Discharge Planning Assessment Assigned Ground Control Approach Technician CARLOS Linn DPOA/Assigned Designee Name informally spouse Pedro Contact Information [phone] Advance Directives? No Advance Directives on File No History Provided By Patient,Significant Other, Medical Record Has Patient been admitted in last 30 No days? Prior Living Arrangements House Household Members spouse,children Type of transporation used prior to Drives own vehicle admit Independent with ADL's Yes Is patient alert and oriented? Yes Caregiver for Another Yes: older/young adult children Barriers to Discharge No Discharge Plan Home Transportation Arrangement Spouse bedside and took FMLA and can transport at d/c Referrals Initiated None needed Whiteboard Updated in Patient Room with Yes name and ext. 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 No Hx Sleep Apnea No CPAP/BIPAP use not prescribed Currently Taking a Beta Yosi No Anti-Coagulant Therapy No Has a Cook Helper Dessert No Cardiac Testing No Hx Pacemaker/ICD No Pacemaker Rep Required? No Cardiac Clearance Received Not Applicable Urinary Catheter Present No Hx Urinary Self Catheterization No Diabetes No: Hx of gestational requiring insulin w/second delivery, Patient No Lactating No Presence of External or Internal Medical No Devices Marital Status Lives With spouse,children Patient Discharge Plan Description Return Home Advance Directives? No
--- NOTE | 2021-09-06 11:37 | PC.NURSE ---
Bladder scan performed at approx. 1000 to check for post void residual. 25cc in bladder.
--- NOTE | 2021-09-06 14:55 | PC.NURSE ---
Pt is dressed and ready for discharge home with Spouse. IV removed. Went over d/c instructions with Pt and Spouse-discussed d/c meds, time of last dose, reviewed stroke education, s/s of infection, lifting and activity restrictions, encouraged fluid intake to prevent constipation or dehydration and encouraged stool softeners or Miralax if that occurs, and reminded Pt that she is not to drive while on narcotics. Pt and Spouse denied further questions and was taken out via w/c by RN with Spouse and all belongings.
== END 2021-09-06 14:57 | disposition home or self-care (01) | DRG 743 ==
LOC: OR 08:37 → AC 09-06 08:36
PROVIDERS: Admitting Provider Obstetrics & Gynecology; PCP Nurse Practitioner Family; Referring Provider Obstetrics & Gynecology; Visit Provider Obstetrics & Gynecology
PROC: 0UT94ZL Resection of Uterus, Supracervical, Percutaneous Endoscopic Approach (ICD-10-PCS; CPT 58180; principal; 2021-09-05 09:45)
DX: D25.9 Leiomyoma of uterus, unspecified (principal); N99.85 Post endometrial ablation syndrome; Z20.822 Contact with and (suspected) exposure to COVID-19; N73.6 Female pelvic peritoneal adhesions (postinfective); N80.0 Endometriosis of uterus; N70.11 Chronic salpingitis
CPT/HCPCS: 58180; 36415; 81001; 85025; 87635; G0378; J0131; J0171; J0690; J1100; J1170; J1885; J2270; J2405; J2704; J3010

== ENCOUNTER → 2022-02-07 07:23 | Outpatient (CLI) | payer OTHER, SELFPAY ==
[2021-09-05 15:48] VITALS: BMI 32.7
== END ==
PROVIDERS: PCP Nurse Practitioner Family; Visit Provider Physician Assistant
DX: R30.0 Dysuria (principal)
CPT/HCPCS: 87077; 87086; 87186

== ENCOUNTER → 2022-03-28 09:57 | Outpatient (CLI) | payer OTHER, SELFPAY ==
[2021-09-05 15:48] VITALS: BMI 32.7
== END ==
PROVIDERS: PCP Nurse Practitioner Family; Visit Provider Physician Assistant
DX: R30.0 Dysuria (principal)
CPT/HCPCS: 87077; 87086; 87186

== ENCOUNTER → 2022-04-29 11:25 | Outpatient (CLI) | payer OTHER, SELFPAY ==
[2021-09-05 15:48] VITALS: BMI 32.7
== END ==
PROVIDERS: PCP Registered Nurse Diabetes Educator; Visit Provider Physician Assistant
DX: N34.3 Urethral syndrome, unspecified (principal)
CPT/HCPCS: 87077; 87086; 87186

== ENCOUNTER → 2022-05-21 15:56 | Outpatient (CLI) | payer OTHER, SELFPAY ==
[2021-09-05 15:48] VITALS: BMI 32.7
== END ==
PROVIDERS: PCP Registered Nurse Diabetes Educator; Visit Provider Student in an Organized Health Care Education/Training Program
DX: R30.0 Dysuria (principal)
CPT/HCPCS: 87077; 87086; 87186

== ENCOUNTER → 2022-06-19 14:29 | Outpatient (CLI) | payer OTHER, SELFPAY ==
[2021-09-05 15:48] VITALS: BMI 32.7
--- NOTE | 2022-06-19 14:31 | DI.RAD.S_ITS ---
PROCEDURE: XR FOOT RT MIN 3V INDICATIONS: eval pain R 1st MTP joint and proximal phalanx TECHNIQUE: 3 views of the foot were acquired. COMPARISON: None. FINDINGS: Bones: No fractures or dislocations. No suspicious bony lesions. Soft tissues: No tibiotalar joint effusion. Achilles tendon appears normal. IMPRESSION: Normal right foot Dictated by: Prosper Caldwell M.D. on 06/19/2022 at 16:43 Approved by: Prosper Caldwell M.D. on 06/19/2022 at 16:45
--- NOTE | 2022-06-19 14:31 | DI.RAD.S_ITS ---
PROCEDURE: XR FOOT LT MIN 3V INDICATIONS: eval pain L 5th metatarsal proximal aspect TECHNIQUE: 3 views of the foot were acquired. COMPARISON: None. FINDINGS: Bones: No fractures or dislocations. No suspicious bony lesions. Soft tissues: No tibiotalar joint effusion. Achilles tendon appears normal. IMPRESSION: Normal left foot Dictated by: Prosper Caldwell M.D. on 06/19/2022 at 16:45 Approved by: Prosper Caldwell M.D. on 06/19/2022 at 16:46
--- NOTE | 2022-06-19 14:32 | DI.MG.S_ITS ---
BILATERAL DIGITAL SCREENING MAMMOGRAM 3D/2D WITH CAD: 06/19/2022 CLINICAL: Routine screening. Family history of breast cancer. Comparison is made to exams dated: 05/26/2021 mammogram, 05/11/2020 mammogram, and 05/13/2019 mammogram - [facility]. There are scattered areas of fibroglandular density in both breasts (category b / 25%-50% glandular tissue). Current study was also evaluated with a Computer Aided Detection (CAD) system. There are benign post operative findings in the left breast. No significant masses, calcifications, or other findings are seen in either breast. There has been no significant interval change. IMPRESSION: BENIGN There is no mammographic evidence of malignancy. A 1 year screening mammogram is recommended. This exam was interpreted at Station ID: [id number]. NOTE: For mammograms, a report in lay terms will be sent to the patient. Approximately 15% of breast malignancies will not be visualized mammographically. In the management of a palpable breast mass, a negative mammogram must not discourage biopsy of a clinically suspicious lesion. Electronically Signed By: Devon bernard/codey:06/19/2022 15:31:09 letter sent: Normal Exam ACR BI-RADS Category 2: Benign Finding(s) 3342F
--- NOTE | 2022-06-19 14:52 | DI.CT.S_ITS ---
PROCEDURE: CT IVP A/P W/WO INDICATIONS: frequent UTI TECHNIQUE: Optional 5 mm thick noncontrast images acquired from the diaphragm to the symphysis pubis. After the administration of intravenous contrast, 5 mm thick images acquired from the diaphragm to the symphysis pubis after a 10-minute delay. 2 mm thick coronal and sagittal reformats were then performed of the kidneys and ureters. For radiation dose reduction, the following was used: automated exposure control, adjustment of mA and/or kV according to patient size. COMPARISON: None. FINDINGS: Image quality: Excellent. Lung bases: Lung bases are clear. Heart size is normal. Urinary system: On precontrast imaging, there is a nonobstructing 3 mm stone at the inferior pole of the right kidney. Tiny foci of calcification can be seen elsewhere within each kidney. The kidneys demonstrate normal size and demonstrate symmetric enhancement. No perinephric fat stranding. There is normal bilateral renal enhancement. Renal calyces appear normal in morphology when filled with contrast. Opacified portions of both ureters demonstrate normal caliber. Bladder wall thickness is normal. No calcified bladder stones. Other solid organs: Liver is normal in size and enhancement. Gallbladder wall is not thickened. Biliary system is non dilated. Pancreas enhances normally. Spleen is normal in size and enhancement. No adrenal nodules. Peritoneum and bowel: Bowel loops demonstrate normal wall thickness and caliber. No free fluid or air. Nodes and vessels: No retroperitoneal or mesenteric adenopathy by size criteria. Aorta and inferior vena cava are normal in size. Abdominal wall: No ventral hernias. Pelvis: No pathologic free pelvic fluid. No inguinal hernias or adenopathy. Atrophic uterus versus supracervical hysterectomy can be seen. Bones: No suspicious bony lesions. No vertebral body compression fractures. Mild levoconvex scoliotic curvature is noted. Age-appropriate bony degenerative changes are seen. IMPRESSION: No imaging explanation is found for this patient's presenting symptoms. 3 mm nonobstructing right-sided kidney stone. Incidental note is made of: Levoconvex scoliotic curvature Atrophic uterus versus supracervical hysterectomy Dictated by: Javier Avalos M.D. on 06/19/2022 at 16:31 Approved by: Javier Avalos M.D. on 06/19/2022 at 16:34
== END ==
PROVIDERS: PCP Registered Nurse Diabetes Educator; Referring Provider Registered Nurse Diabetes Educator; Visit Provider Registered Nurse Diabetes Educator
DX: Z80.3 Family history of malignant neoplasm of breast (principal); N39.0 Urinary tract infection, site not specified; N20.0 Calculus of kidney; M79.671 Pain in right foot; Z12.31 Encounter for screening mammogram for malignant neoplasm of breast; M79.672 Pain in left foot
CPT/HCPCS: 73630; 74178; 77063; 77067

== ENCOUNTER → 2023-03-28 07:43 | Outpatient (CLI) | payer OTHER, SELFPAY ==
[2021-09-05 15:48] VITALS: BMI 32.7
== END ==
PROVIDERS: PCP Registered Nurse Diabetes Educator; Visit Provider Nurse Practitioner Family
DX: N39.0 Urinary tract infection, site not specified (principal)
CPT/HCPCS: 87077; 87086; 87186

== ENCOUNTER → 2023-06-25 09:22 | Outpatient (CLI) | payer OTHER, SELFPAY ==
[2021-09-05 15:48] VITALS: BMI 32.7
== END ==
PROVIDERS: PCP Registered Nurse Diabetes Educator; Visit Provider Physician Assistant
DX: R30.0 Dysuria (principal)
CPT/HCPCS: 87086

== ENCOUNTER → 2023-07-22 07:36 | Outpatient (CLI) | payer OTHER, SELFPAY ==
[2021-09-05 15:48] VITALS: BMI 32.7
[2023-07-22 08:14] LABS: Hematocrit 41.8 % (36-46); Hemoglobin 14.6 g/dL (12.0-16.0); Mean Corpuscular HGB Conc 34.8 % (30-36); Mean Corpuscular Hemoglobin 33.2 PG (26-34); Mean Corpuscular Volume 95.4 fL (80-100); Platelet Count 236 X10^3/uL (150-400); Red Blood Cell Count 4.38 X10^6/uL (4.0-5.2); Red Cell Distribution Width 12.5 % (11.6-14.8)
[2023-07-22 08:47] LABS: Alanine Aminotransferase 20 IU/L (<35); Albumin 4.2 g/dL (3.5-5.0); Albumin Globulin Ratio 1.4 (1.0-2.8); Alkaline Phosphatase 62 U/L (38-126); Aspartate Aminotransferase 30 IU/L (14-36); BUN Creatinine Ratio 18.3 (6-22); Bilirubin Total 0.4 mg/dL (0.2-1.3); Blood Urea Nitrogen 15 mg/dL (7-17); Calcium 9.5 mg/dL (8.4-10.2); Carbon Dioxide 28 mmol/L (22-32); Chloride 103 mmol/L (98-107); Cholesterol 219 mg/dL (140-199); Estimated Glomerular Filt Rate > 60 mL/min (>60); Globulin 3.1 g/dL (1.7-4.1); Glucose 125 mg/dL (70-100); HDL Cholesterol 50 mg/dL (40-60); HEMOLYSIS < 15 (0-50); LDL Cholesterol Calculated 137 mg/dL (<100); Sodium 137 mmol/L (137-145); Total Protein 7.3 g/dL (6.3-8.2); Triglycerides 158 mg/dL (35-150)
[2023-07-22 08:56] LABS: Hemoglobin A1C% w Est Avg Glu 5.8 % (4.0-6.0)
[2023-07-22 09:03] LABS: Free T4, Direct Thyroxine 0.96 ng/dL (0.78-2.19)
[2023-07-22 09:17] LABS: Thyroid Stimulating Hormone 11.3 uIU/mL (0.47-4.68)
[2023-07-22 09:28] LABS: Follicle Stimulating Hormone 31.4 mIU/mL
== END ==
PROVIDERS: PCP Registered Nurse Diabetes Educator; Referring Provider Registered Nurse Diabetes Educator; Visit Provider Registered Nurse Diabetes Educator
DX: N95.1 Menopausal and female climacteric states (principal); R73.01 Impaired fasting glucose; E78.5 Hyperlipidemia, unspecified
CPT/HCPCS: 36415; 80053; 80061; 82670; 83001; 83036; 84439; 84443; 85027

== ENCOUNTER → 2023-08-01 16:02 | Outpatient (CLI) | payer OTHER, SELFPAY ==
[2021-09-05 15:48] VITALS: BMI 32.7
--- NOTE | 2023-08-01 | DI.MG.S_ITS ---
BILATERAL DIGITAL SCREENING MAMMOGRAM 3D/2D WITH CAD: 08/01/2023 CLINICAL: Routine screening. Family history of breast cancer. Comparison is made to exams dated: 06/19/2022 mammogram, 05/26/2021 mammogram, and 05/11/2020 mammogram - [facility]. There are scattered areas of fibroglandular density in both breasts (category b / 25%-50% glandular tissue). Current study was also evaluated with a Computer Aided Detection (CAD) system. There are benign post operative findings in the left breast. No significant masses, calcifications, or other findings are seen in either breast. There has been no significant interval change. IMPRESSION: BENIGN There is no mammographic evidence of malignancy. A 1 year screening mammogram is recommended. Based on the Tyrer Cuzick model (a risk assessment model) the patient's lifetime risk is 15.4% and her 10 year risk is 3.5%. According to the ACR, ACS, and NCCN guidelines, an annual breast MRI exam along with mammogram is recommended if the patient's lifetime risk is 20% or greater. This exam was interpreted at Station ID: [id number]. NOTE: For mammograms, a report in lay terms will be sent to the patient. Approximately 15% of breast malignancies will not be visualized mammographically. In the management of a palpable breast mass, a negative mammogram must not discourage biopsy of a clinically suspicious lesion. Electronically Signed By: Mansoor [email or web address]:08/02/2023 08:42:15 letter sent: Normal Exam ACR BI-RADS Category 2: Benign Finding(s) 3342F
== END ==
PROVIDERS: PCP Registered Nurse Diabetes Educator; Referring Provider Registered Nurse Diabetes Educator; Visit Provider Registered Nurse Diabetes Educator
DX: Z12.31 Encounter for screening mammogram for malignant neoplasm of breast (principal); Z80.3 Family history of malignant neoplasm of breast
CPT/HCPCS: 77063; 77067

== ENCOUNTER → 2023-09-20 11:22 | Outpatient (CLI) | payer OTHER, SELFPAY ==
[2021-09-05 15:48] VITALS: BMI 32.7
[2023-09-20 13:13] LABS: TSH w/ Reflex to FT4 1.57 uIU/mL (0.47-4.68)
[2023-09-21 07:21] LABS: Thyroid Peroxidase Antibodies 511 IU/mL (0-34)
== END ==
PROVIDERS: PCP Registered Nurse Diabetes Educator; Referring Provider Registered Nurse Diabetes Educator; Visit Provider Registered Nurse Diabetes Educator
DX: E03.8 Other specified hypothyroidism (principal)
CPT/HCPCS: 36415; 84443; 86376

== ENCOUNTER → 2024-01-20 07:52 | Outpatient (CLI) | payer OTHER, SELFPAY ==
[2021-09-05 15:48] VITALS: BMI 32.7
[2024-01-20 09:59] LABS: Hemoglobin A1C% w Est Avg Glu 5.7 % (4.0-6.0)
[2024-01-20 10:14] LABS: Cholesterol 217 mg/dL (140-199); Glucose 105 mg/dL (70-100); HDL Cholesterol 55 mg/dL (40-60); LDL Cholesterol Calculated 133 mg/dL (<100); Triglycerides 144 mg/dL (35-150)
[2024-01-21 17:27] LABS: TSH w/ Reflex to FT4 1.25 uIU/mL (0.47-4.68)
== END ==
PROVIDERS: PCP Registered Nurse Diabetes Educator; Referring Provider Registered Nurse Diabetes Educator; Visit Provider Registered Nurse Diabetes Educator
DX: R73.01 Impaired fasting glucose (principal); E78.5 Hyperlipidemia, unspecified
CPT/HCPCS: 36415; 80061; 82947; 83036; 84443

== ENCOUNTER 2024-03-17 09:28 | Day surgery (SDC) | payer OTHER, SELFPAY ==
[2021-09-05 15:48] VITALS: BMI 32.7
--- NOTE | 2024-03-17 | PATH_ITS ---
[facility] Accession Number: [id number] No. of containers..02 Tissue . 01 Material submitted: . PART A: colon - ASCENDING POLYP PART B: colon - DESCENDING POLYPS X 2 . 01 Diagnosis: Part A: ASCENDING POLYP: Tubular adenoma, and features of melanosis coli. . Part B: DESCENDING POLYPS X 2: Tubular adenomas, and features of melanosis coli. STO 03/19/2024 1259 Local . 01 Electronically signed: . Deandre Lanier MD, Pathologist NPI- [id number] . 01 Gross description: . A. Received in formalin with two patient identifiers and ascending colon, are two dobbins to brown soft tissue fragments, 0.3 to 0.4 cm in greatest dimension. Submitted in A1. . B. Received in formalin with two patient identifiers and descending colon, are two dobbins soft tissue fragments, 0.2 to 0.4 cm in greatest dimension. Submitted in B1. ([id number]) /MRV 03/19/2024 1259 Local . 01 Pathologist provided ICD-10: D12.2, D12.4 . 01 CPT . 505762, 900638 Specimen Comment: A courtesy copy of this report has been sent to [phone] Performed at: [address] [facility] [address], [place], [place] [id number] MD Deandre Lanier MD Phone: [phone]
[2024-03-17 10:00] VITALS: BP 138/84; PULSE 75; RESP 15; TEMP 36.5; O2SAT 99
[2024-03-17] MEDS: LACTATED RINGERS 1,000 ML 42 ML IV (10:19)
--- NOTE | 2024-03-17 10:34 | P.HP_ITS ---
History of Present Illness History of Present Illness Date Patient Seen: 03/17/24 Time Patient Seen: 10:34 Chief complaint: Colonoscopy Narrative: 49-year-old woman here for 1st time screening colonoscopy. No family history of colon cancer. No abdominal concerns today. [facility] Medical History (Updated 01/26/24 @ 13:47 by FELICITY Pritchett) Patrice's thyroiditis Subclinical hypothyroidism Dyslipidemia Skin lesion Elevated fasting blood sugar (06/22/20) Tendinitis Candidal intertrigo Surgical History History of hysterectomy, supracervical History of hysteroscopy (05/11/21) History of tonsillectomy Status post myringotomy with insertion of tube Status post delivery Family History Grandfather Hypertension High cholesterol Mother Age: 78 High cholesterol Alzheimer's disease Mental health problem Grand mal convulsion History of kidney stones Grandfather Cancer Hypertension High cholesterol Grandmother Diabetes mellitus Social History marital status: number of children: 2 household members: spouse and children Smoking Status: Never smoker second hand exposure: No alcohol intake: current substance use type: does not use caffeine: Yes Type(s) of exercise: regular exercise frequency: daily Meds Home Medications and Allergies Home Medications Medication Instructions Recorded Confirmed Type ibuprofen 200 mg tablet 800 mg PO DAILY PRN Pain 06/22/20 03/17/24 History intestinal formula #1 PO 04/05/22 01/22/24 History multivitamin with minerals-folic 2 tab PO DAILY 04/05/22 01/22/24 History acid 200 mcg chewable tablet (Adult Multivitamin Gummies) rhubarb root extract [Estroven PO 04/05/22 01/22/24 History Cmplt Menopause Rlf] cranberry-B.yxqdmroz-Z-Li phos PO 06/28/22 01/22/24 History [Cranberry-Probiotic] peg 3350-sod sulf,kyrjs-yet-mcx 1,000 ml PO DIRECTED #2,000 mL 11/21/23 01/22/24 Rx 178.7-7.3-0.5-1.12-0.9 gram oral soln (Suflave) levothyroxine 100 mcg tablet 100 mcg PO DAILY #90 tabs 01/22/24 03/17/24 Rx Allergies Allergy/AdvReac Type Severity Reaction Status Date / Time Sulfa (Sulfonamide Allergy Mild Rash Verified 03/17/24 09:50 Antibiotics) Exam Vital Signs (past 8 hours): - 03/17/24 10:00 Temperature 97.7 F Pulse Rate 75 Respiratory Rate 15 Blood Pressure 138/84 Pulse Oximetry 99 Oxygen Delivery Method Room Air Oxygen Delivery Method Room Air Narrative Exam Narrative: General adult woman alert oriented no acute distress Chest nonlabored respiration Extremities warm well perfused Assessment & Plan Assessment & Plan narrative: The patient requires colorectal screening and colonoscopy is recommended. Technical details were discussed. Risks, benefits, alternatives explained. Risks including but not limited to myocardial infarction, aspiration, bleeding, pain, missed lesion, incomplete examination, need for further radiographic studies, intestinal injury, and need for major abdominal surgery were discussed. All questions were answered to their satisfaction, and they are in agreement with this plan.
[2024-03-17 11:02] VITALS: BP 116/75; PULSE 77; RESP 13; TEMP 36.4; O2SAT 97
--- NOTE | 2024-03-17 11:06 | P.OP.COLON_ITS ---
Operative Date/Time/Diagnoses Date of procedure: 03/17/24 Time of procedure: 11:07 Pre-op diagnosis: Colorectal screening Post-op diagnosis: other (Colonic polyps x3) Procedure & Clinicians Study performed: Screening colonoscopy Indications: Colorectal screening Surgeon: Dominik Chavez Procedure Notes Procedure in detail: The history and physical was performed/updated and the patient is ASA class is 2. The procedure was discussed in detail with the patient. Potential risks complications including infection, bleeding, missed diagnosis, perforation, need for surgery, and were explained. Their questions were answered and informed consent was obtained. Patient was brought to the procedure room and placed standard monitoring equipment. The patient's vital signs were monitored continuously throughout the entire procedure. Prior to starting time-out was performed. The patient was placed in the left lateral recumbent position. Procedural sedation was administered by anesthesia. Examination began with a thorough inspection of the perianal area there was no evidence of fissures, fistulae, external hemorrhoids or cutaneous malignancy. The colonoscopy scope was then placed into the anal canal and was advanced to the cecum, which was identified by the ileocecal valve, the appendiceal orifice and the confluence of the taenia. The scope was then slowly withdrawn examining colon thoroughly in all directions, irrigating it of any residual stool. The scope was retroflexed within the rectum The patient tolerated the procedure well. They will be discharged once criteria are met. The prep was of poor quality, result of melanosis coli. The withdrawl time was 8 minutes. FINDINGS * Extentive Melanosis coli * Ascending colon-3 mm polyp removed with biopsy forceps * Transverse colon- 3mm polyps x 2 removed with biopsy forceps * Internal hemorrhoids Specimen(s): other (ascending and transverse colon polyps x 2) Impression: colonic polyps x 3 Post-procedure Plan for aftercare: follow up dependent on pathology findings Disposition: same day surgery
[2024-03-17 11:07] VITALS: BP 132/89; PULSE 64; RESP 15; TEMP 36.4; O2SAT 99
[2024-03-17 11:19] VITALS: BP 128/90; PULSE 95; RESP 17; TEMP 36.5; O2SAT 99
== END 2024-03-17 11:30 | disposition home or self-care (01) ==
PROVIDERS: PCP Registered Nurse Diabetes Educator; Referring Provider Surgery; Visit Provider Surgery
PROC: 0DJD8ZZ Inspection of Lower Intestinal Tract, Via Natural or Artificial Opening Endoscopic (ICD-10-PCS; CPT 45378; principal; 2024-03-17 10:15)
DX: Z12.11 Encounter for screening for malignant neoplasm of colon (principal); K64.8 Other hemorrhoids; K63.89 Other specified diseases of intestine; D12.2 Benign neoplasm of ascending colon; D12.4 Benign neoplasm of descending colon
CPT/HCPCS: 45380; J2704

== ENCOUNTER → 2024-07-06 07:26 | Outpatient (CLI) | payer OTHER, SELFPAY ==
[2021-09-05 15:48] VITALS: BMI 32.7
== END ==
PROVIDERS: PCP Registered Nurse Diabetes Educator; Visit Provider Physician Assistant Surgical
DX: R30.0 Dysuria (principal)
CPT/HCPCS: 87086

== ENCOUNTER → 2024-09-03 17:04 | Outpatient (CLI) | payer OTHER, SELFPAY ==
[2021-09-05 15:48] VITALS: BMI 32.7
--- NOTE | 2024-09-03 17:06 | DI.MG.S_ITS ---
BILATERAL DIGITAL SCREENING MAMMOGRAM 3D/2D WITH CAD: 09/03/2024 CLINICAL: Routine screening. Family history of breast cancer. Comparison is made to exams dated: 08/01/2023 mammogram, 06/19/2022 mammogram, and 05/26/2021 mammogram - [facility]. There are scattered areas of fibroglandular density (category b / 25%-50% glandular tissue). Current study was also evaluated with a Computer Aided Detection (CAD) system. There are benign post operative findings in the left breast. No significant masses, calcifications, or other findings are seen in either breast. There has been no significant interval change. IMPRESSION: BENIGN There is no mammographic evidence of malignancy. A 1 year screening mammogram is recommended. Based on the Tyrer Cuzick model (a risk assessment model) the patient's lifetime risk is 15.3% and her 10 year risk is 3.7%. According to the ACR, ACS, and NCCN guidelines, an annual breast MRI exam along with mammogram is recommended if the patient's lifetime risk is 20% or greater. This exam was interpreted at Station ID: [id number]. NOTE: For mammograms, a report in lay terms will be sent to the patient. Approximately 15% of breast malignancies will not be visualized mammographically. In the management of a palpable breast mass, a negative mammogram must not discourage biopsy of a clinically suspicious lesion. Electronically Signed By: Billie santana/codey:09/04/2024 12:32:17 letter sent: Normal Exam ACR BI-RADS Category 2: Benign
== END ==
PROVIDERS: PCP Registered Nurse Diabetes Educator; Referring Provider Registered Nurse Diabetes Educator; Visit Provider Registered Nurse Diabetes Educator
DX: Z12.31 Encounter for screening mammogram for malignant neoplasm of breast (principal); Z80.3 Family history of malignant neoplasm of breast
CPT/HCPCS: 77063; 77067

== ENCOUNTER → 2025-01-26 07:19 | Outpatient (CLI) | payer OTHER, SELFPAY ==
[2021-09-05 15:48] VITALS: BMI 32.7
[2025-01-26 08:07] LABS: Hematocrit 44.1 % (36-46); Hemoglobin 15.3 g/dL (12.0-16.0); Mean Corpuscular HGB Conc 34.7 % (30-36); Mean Corpuscular Hemoglobin 32.4 PG (26-34); Mean Corpuscular Volume 93.3 fL (80-100); Platelet Count 207 X10^3/uL (150-400); Red Blood Cell Count 4.72 X10^6/uL (4.0-5.2); Red Cell Distribution Width 12.5 % (11.6-14.8); White Blood Cell Count 5.7 X10^3/uL (4.5-11.0)
[2025-01-26 08:20] LABS: Hemoglobin A1C% w Est Avg Glu 5.3 % (4.0-6.0)
[2025-01-26 08:22] LABS: Alanine Aminotransferase 22 IU/L (<35); Albumin 4.4 g/dL (3.5-5.0); Albumin Globulin Ratio 1.5 (1.0-2.8); Alkaline Phosphatase 59 U/L (38-126); Aspartate Aminotransferase 33 IU/L (14-36); BUN Creatinine Ratio 17.9 (6-22); Bilirubin Total 0.7 mg/dL (0.2-1.3); Blood Urea Nitrogen 14 mg/dL (7-17); Calcium 9.2 mg/dL (8.4-10.2); Carbon Dioxide 23 mmol/L (22-32); Chloride 106 mmol/L (98-107); Cholesterol 215 mg/dL (140-199); Estimated Glomerular Filt Rate > 60 mL/min (>60); Globulin 2.9 g/dL (1.7-4.1); Glucose 123 mg/dL (70-99); HDL Cholesterol 47 mg/dL (40-60); HEMOLYSIS < 15 (0-50); LDL Cholesterol Calculated 131 mg/dL (<100); Potassium 4.2 mmol/L (3.4-5.1); Sodium 137 mmol/L (137-145); Total Protein 7.3 g/dL (6.3-8.2); Triglycerides 185 mg/dL (35-150)
[2025-01-26 08:37] LABS: Follicle Stimulating Hormone 2.86 mIU/mL
[2025-01-26 08:52] LABS: Estradiol, Total 93.7 pg/mL
[2025-01-26 08:53] LABS: TSH w/ Reflex to FT4 1.39 uIU/mL (0.47-4.68)
[2025-01-26 08:55] LABS: Testosterone 41.7 ng/dL (5.71-77.0)
== END ==
PROVIDERS: PCP Registered Nurse Diabetes Educator; Referring Provider Registered Nurse Diabetes Educator; Visit Provider Registered Nurse Diabetes Educator
DX: E78.5 Hyperlipidemia, unspecified (principal); E03.8 Other specified hypothyroidism; R73.01 Impaired fasting glucose; N95.1 Menopausal and female climacteric states; R53.83 Other fatigue; G47.9 Sleep disorder, unspecified
CPT/HCPCS: 36415; 80053; 80061; 82670; 83001; 83036; 83498; 84403; 84443; 85027